=== PATIENT | male | born 1945 | race Caucasian/White ===

== ENCOUNTER → 2019-02-02 | Outpatient (CLI) | payer SELFPAY ==
[2019-02-02 14:05] VITALS: BMI 30.7
--- NOTE | 2019-02-02 15:45 | RAD_ITS ---
STUDY: X-RAY - LUMBAR SPINE REASON FOR EXAM: Male, 73 years old. Spinal stenosis. Back pain. Right-sided radiculopathy. TECHNIQUE: 3 view(s) of the lumbar spine were obtained. COMPARISON: None FINDINGS: There is an exaggerated lumbar lordosis. There is a mild scoliosis of the lumbar spine. There is anterolisthesis of L5 on S1 of 1 cm. The alignment is otherwise preserved. There is diffuse demineralization with multi-level endplate spondylosis. There is multi-level degenerative disc disease with multi-level disc space narrowing. There is no evidence of acute fracture or loss of vertebral axial height. Diffuse degenerative facet disease. There are probable pars defects at L5-S1. The soft tissue structures are unremarkable. There is right artificial hip. RAD/Lumbar Spine 2 or 3 Views IMPRESSION: 1. Exaggerated lumbar lordosis with mild scoliosis and degenerative changes. 2. Marked anterolisthesis of L5 on S1 with probable pars defects. Electronically Signed: Romero Stewart DO at 23:14 EDT Tel [phone], Service support ,
== END | disposition home or self-care (01) ==
PROVIDERS: Family Provider Family Medicine; PCP Family Medicine; Referring Provider Family Medicine; Visit Provider Family Medicine
DX: M48.00 Spinal stenosis, site unspecified (principal)
CPT/HCPCS: 72100

== ENCOUNTER → 2020-04-18 15:17 | Outpatient (CLI) | payer SELFPAY ==
[2020-04-18 14:38] VITALS: BMI 30.7
[2020-04-18 17:34] LABS: PSA,Total- Diagnostic 0.99 ng/mL (0.0-4.0)
== END ==
PROVIDERS: PCP Family Medicine; Referring Provider Family Medicine; Visit Provider Family Medicine
DX: N40.0 Benign prostatic hyperplasia without lower urinary tract symptoms (principal)
CPT/HCPCS: 36415; 84153

== ENCOUNTER 2020-10-13 07:41 | Day surgery (SDC) | payer SELFPAY, OTHER ==
[2020-09-26 14:20] VITALS: BMI 30.4
[2020-10-13] VITALS (7 sets, daily range): BP systolic 103–167; BP diastolic 69–99; PULSE 72–96; RESP 16; TEMP 36–36.9; O2SAT 96–98; BMI 29.2
--- NOTE | 2020-10-13 | COLBX_PTH ---
PATIENT: PAXTON WILSON LOC: EN U#:[id number] AGE/SX: 75/M ROOM: RE10/13/[address]: Dr. Prosper Vaughan MD : 1945 BED: DIS: 10/13/2020 SPEC #: [id number] RECD: 10/13/20 12:37 STATUS: QING OLIVAS #: [id number] VIOLA: 10/13/20 00:[address]: Prosper Vaughan DEPT: SURGICAL PATHOLOGY RECD BY: Zeferino Melgar ENTERED: 10/13/20 12:38 SP TYPE: COLON BX OTHR DR: Dr. Jay Mart, DO Tissues: A - Ileum, NOS B - Transverse colon C - Sigmoid colon biopsy D - Sigmoid colon biopsy E - Rectum, NOS Procedures: Trichrome (control) Special Stain Group II Surgery Specimen Level IV HEADER OPERATION: Colonoscopy (MAC) PRE-OP DIAGNOSIS: Rectal bleeding TISSUE SUBMITTED: A - Ileocecal valve biopsy, B - Mid transverse biopsy, C - Proximal sigmoid biopsy cold snare, D - Mid sigmoid biopsy, E - Rectal mass biopsy and hot snare MICROSCOPIC DIAGNOSIS A. Ileocecal valve, biopsy: A fragment of colonic mucosa with focal hyperplastic changes. B. Mid transverse colon polyp, biopsy: Tubular adenoma. C. Proximal sigmoid colon, biopsy: Tubular adenoma. D. Mid sigmoid biopsy: A fragment of colonic mucosa with pigment laden macrophages, consistent with melanosis coli. Focal changes suggestive of collagenous colitis. See comment. E. 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 See comment. SJ:rg 10/16/2020 COMMENT D. Trichrome stain with matched control was used in the evaluation of the specimen and shows focal minimal thickening of subepithelial collagen band. E. The specimen predominantly consists of fragments of tubulovillous adenoma. MICROSCOPIC DESCRIPTION Slides are reviewed. GROSS DESCRIPTION A - Received in fixative is one container labeled with the patient's name and designated ileocecal valve biopsy. The specimen consists of one irregular fragment of light romo soft tissue that measures 0.2 x 0.2 x 0.1 cm. The specimen is totally submitted in one cassette. B - Received in fixative is one container labeled with the patient's name and designated mid transverse biopsy. The specimen consists of one irregular fragment of light romo soft tissue that measures 0.3 x 0.2 x 0.1 cm. The specimen is totally submitted in one cassette. C - Received in fixative is one container labeled with the patient's name and designated proximal sigmoid biopsy cold snare. The specimen consists of one irregular fragment of light romo soft tissue that measures 0.5 x 0.4 x 0.1 cm. The specimen is totally submitted in one cassette. D - Received in fixative is one container labeled with the patient's name and designated mid sigmoid biopsy. The specimen consists of one irregular fragment of light romo soft tissue that measures 0.2 x 0.3 x 0.1 cm. The specimen is totally submitted in one cassette. E - Received in fixative is one container labeled with the patient's name and designated rectal mass biopsy and hot snare. The specimen consists of a romo-pink polyp measuring 1.5 x 1 x 1 cm. Apparent base is inked. The specimen is serially sectioned. Also present in the container are multiple fragments of romo soft tissue measuring in aggregate 1 x 0.4 x 0.1 cm. The entire specimen is submitted in two cassettes as follows: 1 - serially sectioned polyp, 2 - rest of the specimen, smaller fragments. / SJ:rg 10/13/20 TC:0 CPT: 32135 x5, 87336
--- NOTE | 2020-10-13 08:16 | HP.PCM_ITS ---
Problem List (1) Rectal bleeding Status: Acute (2) Hemorrhoids, internal, with bleeding Status: Chronic History and Physical Date of Admission: 10/13/20 Intake Visit Reasons: Hemorrhoids Chief Complaint: hemorrhoids [employer] Required: No Accompanied by: Is patient in pain?: No Allergies Penicillins Allergy (Severe, Verified 09/26/20 14:22) Hives Medications [id number] PO 02/02/19 [History Confirmed 09/26/20] triamcinolone acetonide 0.1 % topical cream 1 applic TOPICAL BID #30 g 10/11/19 [Rx Confirmed 09/26/20] tamsulosin 0.4 mg capsule 0.4 mg PO DAILY #90 cap 06/28/20 [Rx Confirmed 09/26/20] ibuprofen 200 mg tablet 200 mg PO Q6H PRN 09/26/20 [History Confirmed 09/26/20] [facility] Medical History (Updated 09/26/20 @ 14:[address] Prosper Vaughan MD) Rectal bleeding (Acute) Hemorrhoids, internal, with bleeding (Chronic) Open comedone (Acute) Leaky heart valve (Chronic) Rheumatic fever (Acute) BPH (benign prostatic hyperplasia) (Chronic) Arthritis (Acute) Heart murmur (Acute) History of back problems (Acute) Surgical History (Updated 09/26/20 @ 14:19 by Machelle Cole) History of carpal tunnel release of both wrists (Acute) History of sebaceous cyst (Acute) History of total right hip replacement (Acute) history ORIF jaw (Acute) Family History Brother Heart disease Stomach cancer Brother Heart disease Sister Cancer Sister Cancer Social History (Updated 09/26/20 @ 14:[address] Prosper Vaughan MD) Smoking Status: Former smoker how long ago did patient quit smokin-30 years ago alcohol intake: current alcohol intake frequency: holidays/special occasions only Alcohol type: beer, hard liquor, other substance use type: does not use what type of physical activity do you participate in: none HPI HPI HPI: PAXTON WILSON, is a 75 M who presents to the office today for surgical consultation regarding rectal bleeding. The patient is referred by Dr. aZira Oliveira and a written copy my surgical consult recommendations will be returned to him. Patient has had at least 2 years of rectal bleeding. Occasionally has discomfort but some but most of the time not. He occasion will have some sharp pain. He notes more recently that he has to reach back there and reduce tissue. He has never had a colonoscopy or inspection of his colon. He is not on any anticoagulants. He denies any family history of colon polyps or colon cancer. He does have benign prostatic hypertrophy and he is on tamsulosin for that. He is [employer]. He is still working. Sometimes he has to lift up to 80 pounds. He occasion will try some topical ointments. Past surgical history includes a right hip replacement. He denies myocardial infarction or CVA or diabetes or DVT. He denies history of anemia HPI HPI HPI: PAXTON WILSON, is a 75 M who presents to the office today for ROS General General: No weight change, appetite, fatigue, colon cancer, breast cancer or weakness HEENT HEENT: No difficulty swallowing, eye injury, eye surgery, swollen glands or hoarseness Endo Endocrine: No thyroid disease, diabetes mellitus, thyroid cancer, Hair loss, heat intolerance or cold intolerance Skin Skin: No rash or changing moles Breast Breast: No left breast lump, right breast lump, nipple discharge, breast pain, abnormal mammogram, abnormal US or breast enlargement Musc Musculoskeletal: Yes back problems and arthritis; no rheumatoid arthritis, gout or joint pain Cardio Cardiovascular: Yes murmur; no pacemaker, heart disease, atrial fibrillation, high blood pressure, heart attack, heart stent, palpitations, shortness of breat with exertion or chest pain Psych Psychiatric: No depression, anxiety or hearing voices Resp Respiratory: No shortness of breath, No sleep apnea, No cough, No COPD, No asthma, No emphysema, No wheezing Gastro Gastrointestinal: No abdominal pain, No nausea or vomiting, No diarrhea, No constipation, No blood in stool, No acid reflux, Yes hemorrhoids, No ulcers, No gallbladder problem, No black,tarry stools Markus Hematologic: No blood thinners, No blood disorders, Yes bleeding, No anemia, No blood clots Neuro Neurologic: No system reviewed and no additional complaints, except as docu, No as per HPI, No abnormal walking, No abnormal hearing, No abnormal movements, No abnormal speech, No behavioral changes, No burning sensations, No confusion, No seizure-like activity, No unsteadiness, No dizziness, No localized weakness, No frequent falls, No headache(s), No lack of coordination, No loss of vision, No memory loss, No numbness, No other visual disturbances, No radiating pain, No restless legs, No sensory deficit, No fainting, No tingling, No tremor(s), No weakness, No other Exam Const General: cooperative, comfortable, no acute distress, well developed Nutritional Appearance: obese Orientation: alert, awake [facility] Head: normal to inspection Chest Chest palpation & inspection: normal inspection of the chest Breast Palpation: No nipple discharge Resp Effort & Inspection: normal respiratory effort Auscultation: clear to auscultation bilaterally Cardio Rate: regular rate Rhythm: regular rhythm Heart Sounds: murmur GI Palpation: soft, no hepatosplenomegaly Auscultation: normal bowel sounds Musc Cervical Spine: normal cervical lordosis Skin General: no rashes or lesions noted Neuro Cognition: normal cognition Extrem General: no calf tenderness Psych Affect: normal affect Assessment & Plan Problems 1. Rectal bleeding K62.5 Plan 75-year-old Buddhist gentleman with rectal bleeding prolapsing tissue. He has never had a colonoscopy. Not sure whether this is prolapsing internal hemorrhoids or rectal prolapse or other etiology to the rectal bleeding. I do propose for him a colonoscopy with possible biopsy or polypectomy as indicated. I am quite uncomfortable with simply treating hemorrhoids and the patient was never had an inspection of his colon. He is aware of this. He has had an opportunity to ask and have questions answered. He has been provided descriptive information regarding the colonoscopy. He has been provided information on the bowel prep. I am unable to determine what type of operative procedure would be best for him namely no hemorrhoidectomy or surgical hemorrhoidectomy or PPH hemorrhoidopexy until I am able to do a better inspection. He would like to see [facility] cost estimates. He will then proceed at his discretion. I appreciate the opportunity of assisting with his surgical care Copy: Dr. Zaira Sykes and Dr. Layo Vaughan M.D., F.A.C.S. I have re-examined the patient. There are no clinical changes since date of exam. Procedure Criteria Procedure Type: Elective COVID Risk Discussion: The surgeon/proceduralist and patient have discussed in detail the risk of exposure to and/or potential harm posed by the COVID-19 virus with having a surgery/procedure at this time versus the risk of delaying the surgery/procedure. It is not possible to know either the risk of delaying the surgery or procedure or chance of getting an infection with perfect accuracy, but a joint decision was made between the patient and the surgeon/proceduralist to proceed at this time with the scheduled surgery/procedure as indicated on the consent form.
[2020-10-13] MEDS: Lactated Ringers 1,000 ML 100 ML IV (08:17)
--- NOTE | 2020-10-13 09:23 | OP.COLON_ITS ---
Patient Name: Coleman Anderson Procedure Date: 10/13/2020 8:16 AM Date of : 1945 Age: 75 Procedure: Colonoscopy Indications: Rectal bleeding Providers: Prosper Vaughan MD Referring MD: Jay Mart Medicines: See the Anesthesia note for documentation of the administered medications Patient Profile: Last Colonoscopy: none. The patient's first colonoscopy is today. Complications: No immediate complications. Procedure: Pre-Anesthesia Assessment: - Prior to the procedure, a History and Physical was performed, and patient medications and allergies were reviewed. The patient's tolerance of previous anesthesia was also reviewed. The risks and benefits of the procedure and the sedation options and risks were discussed with the patient. All questions were answered, and informed consent was obtained. Prior Anticoagulants: The patient has taken no previous anticoagulant or antiplatelet agents. ASA Grade Assessment: II - A patient with mild systemic disease. After reviewing the risks and benefits, the patient was deemed in satisfactory condition to undergo the procedure. After I obtained informed consent, the scope was passed under direct vision. Throughout the procedure, the patient's blood pressure, pulse, and oxygen saturations were monitored continuously. The colonoscope was introduced through the anus and advanced to the cecum, identified by appendiceal orifice and ileocecal valve. The colonoscopy was performed with moderate difficulty due to a tortuous colon. Successful completion of the procedure was aided by changing the patient to a supine position and applying abdominal pressure. The patient tolerated the procedure well. The quality of the bowel preparation was fair. The ileocecal valve and the appendiceal orifice were photographed. Scope In: 8:33:41 AM Scope Withdrawal Time 0 hours 19 minutes 5 seconds Scope Out: 9:07:25 AM Total Procedure Duration Time 0 hours 33 minutes 44 seconds Findings: The digital rectal exam revealed a flocculent and mobile rectal mass palpated 1.0 cm from the anal verge. The mass was non-circumferential and located predominantly at the posterior bowel wall. A frond-like/villous non-obstructing large mass was found in the rectum. The mass was non-circumferential. No bleeding was present. Biopsies were taken with a cold forceps for histology. A polyp was found in the rectum. The polyp was removed with a hot snare. Polyp resection was incomplete. The resected tissue was retrieved. A 4 mm polyp was found in the ileocecal valve. The polyp was sessile. The polyp was removed with a cold biopsy forceps. Resection and retrieval were complete. A 5 mm polyp was found in the mid transverse colon. The polyp was sessile. The polyp was removed with a cold biopsy forceps. Resection and retrieval were complete. A 8 mm polyp was found in the proximal sigmoid colon. The polyp was sessile. The polyp was removed with a cold snare. Resection and retrieval were complete. A 4 mm polyp was found in the mid sigmoid colon. The polyp was sessile. The polyp was removed with a cold biopsy forceps. Resection and retrieval were complete. The left colon was significantly tortuous. Advancing the scope required changing the patient to a supine position and using manual pressure. Impression: - Preparation of the colon was fair. - Rectal mass 0.5cm cm from the anal verge. 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 Biopsied with cold forcep and hot snare partial resection. - One polyp in the rectum, removed with a hot snare. Incomplete resection. Resected tissue retrieved. - One 4 mm polyp at the ileocecal valve, removed with a cold biopsy forceps. Resected and retrieved. - One 5 mm polyp in the mid transverse colon, removed with a cold biopsy forceps. Resected and retrieved. - One 8 mm polyp in the proximal sigmoid colon, removed with a cold snare. Resected and retrieved. - One 4 mm polyp in the mid sigmoid colon, removed with a cold biopsy forceps. Resected and retrieved. - Tortuous colon. Recommendation: - Discharge patient to home. - Resume previous diet. - Continue present medications. - Repeat colonoscopy in 1 year for surveillance. - Return to my office in 5 days. Make appointment for please Procedure Code(s): --- Professional --- 16474, Colonoscopy, flexible; with removal of tumor(s), polyp(s), or other lesion(s) by snare technique 60716, 59, Colonoscopy, flexible; with biopsy, single or multiple Diagnosis Code(s): --- Professional --- K62.89, Other specified diseases of anus and rectum D49.0, Neoplasm of unspecified behavior of digestive system K62.1, Rectal polyp D12.0, Benign neoplasm of cecum D12.3, Benign neoplasm of transverse colon (hepatic flexure or splenic flexure) D12.5, Benign neoplasm of sigmoid colon K62.5, Hemorrhage of anus and rectum Q43.8, Other specified congenital malformations of intestine CPT copyright 2017 [employer]. All rights reserved. The codes documented in this report are preliminary and upon auditing coder review may be revised to meet current compliance requirements. Prosper Vaughan MD 10/13/2020 9:22:26 AM This report has been signed electronically. Number of Addenda: 0 Note Initiated On: 10/13/2020 8:16 AM
--- NOTE | 2020-10-13 09:23 | OP.CCLET_ITS ---
10/13/2020 Jay Mart Re : Colonoscopy procedure for Coleman Anderson Dear Dr. Mart This procedure was performed on Tuesday, October 13, 2020. My impressions and recommendations are as follows: Impressions : - Preparation of the colon was fair. - Rectal mass 0.5cm cm from the anal verge. 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 Biopsied with cold forcep and hot snare partial resection. - One polyp in the rectum, removed with a hot snare. Incomplete resection. Resected tissue retrieved. - One 4 mm polyp at the ileocecal valve, removed with a cold biopsy forceps. Resected and retrieved. - One 5 mm polyp in the mid transverse colon, removed with a cold biopsy forceps. Resected and retrieved. - One 8 mm polyp in the proximal sigmoid colon, removed with a cold snare. Resected and retrieved. - One 4 mm polyp in the mid sigmoid colon, removed with a cold biopsy forceps. Resected and retrieved. - Tortuous colon. Recommendations : - Discharge patient to home. - Resume previous diet. - Continue present medications. - Repeat colonoscopy in 1 year for surveillance. - Return to my office in 5 days. Make appointment for please My findings are described in the full procedure note, which is enclosed. If I can be of further assistance, please feel free to contact me at Doctor phone number(s): Work: . Sincerely, Prosper Vaughan MD 10/13/2020 9:22:26 AM This report has been signed electronically.
== END 2020-10-13 10:25 | disposition home or self-care (01) ==
LOC: EN 07:44 → AC 07:46
PROVIDERS: PCP Family Medicine; Referring Provider Family Medicine; Visit Provider Surgery
PROC: 0DJD8ZZ Inspection of Lower Intestinal Tract, Via Natural or Artificial Opening Endoscopic (ICD-10-PCS; CPT 45378; principal; 2020-10-13 09:25)
DX: K62.5 Hemorrhage of anus and rectum (principal); Z20.828 Contact with and (suspected) exposure to other viral communicable diseases; N40.0 Benign prostatic hyperplasia without lower urinary tract symptoms; M19.90 Unspecified osteoarthritis, unspecified site; D12.0 Benign neoplasm of cecum; D49.0 Neoplasm of unspecified behavior of digestive system; Q43.8 Other specified congenital malformations of intestine; D12.5 Benign neoplasm of sigmoid colon; D12.3 Benign neoplasm of transverse colon; D12.8 Benign neoplasm of rectum; Z79.899 Other long term (current) drug therapy; Z87.891 Personal history of nicotine dependence
CPT/HCPCS: 45380; 45385; 87426; 88305; 88313; C9803; J7120; J2405

== ENCOUNTER 2022-12-27 08:28 | Day surgery (SDC) | payer SELFPAY ==
--- NOTE | 2022-12-27 08:51 | PCM.HP.BLA ---
History and Physical Date of Admission: 12/27/22 Visit Reasons:?C-SCOPE/RECALL LETTER Chief Complaint: c-scope/recall letter Allergies Penicillins Allergy (Severe, Verified 12/12/21 14:46) Hives Medications [id number] 1 tablet PO DAILY 02/02/19 [History Confirmed 11/19/22] triamcinolone acetonide 0.1 % topical cream 1 applic topical BID #30 grams 10/11/19 [Rx Confirmed 11/19/22] ibuprofen 200 mg tablet 200 mg PO Q6H PRN Not Specified 09/26/20 [History Confirmed 11/19/22] tamsulosin 0.4 mg capsule (Flomax) 0.4 mg PO DAILY #90 caps 03/13/21 [Rx Confirmed 11/19/22] amlodipine 5 mg tablet 5 mg PO QHS #90 tabs 12/12/21 [Rx Confirmed 11/19/22] PFSH Medical History?(Updated 11/19/22 @ 12:[address] Prosper Vaughan MD) Arthritis BPH (benign prostatic hyperplasia) Colon cancer Heart murmur Hemorrhoids, internal, with bleeding History of back problems Leaky heart valve Open comedone Rectal bleeding Rheumatic fever Surgical History?(Updated 03/09/22 @ 17:33 by Domi Smith) H/O colectomy History of carpal tunnel release of both wrists History of sebaceous cyst History of total right hip replacement history ORIF jaw Family History? Brother Heart disease Stomach cancerBrother Heart diseaseSister?? CancerSister?? Cancer Social History? Smoking Status:? Former smoker how long ago did patient quit smoking:? 25-30 years ago alcohol intake:? current alcohol intake frequency: holidays/special occasions only Alcohol type: beer, hard liquor and other substance use type:? does not use what type of physical activity do you participate in:? none HPI HPI HPI: I had assisted this patient on October 13, 2020 with a colonoscopy.? I detected a rectal mass which was malignant.? There was additional polyp in the rectum and 1 at the ileocecal valve and 1 in the mid transverse colon 1 in the proximal sigmoid colon and 1 in the mid sigmoid colon with a tortuous colon noted.? The patient had a robotic APR with permanent colostomy by on 02/26/21.? 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 He is currently treated by Dr. Dony Saenz for hematology.? The patient is due for colonoscopy. Primary concern is an ever enlarging bubble at the stoma site.? He has had a hand fashion a elastic band that has a metal piece with a hole cut out to try to help support this stomal hernia. 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 ROS General General: No weight change, appetite, fatigue, colon cancer, breast cancer or weakness HEENT HEENT: No difficulty swallowing, eye injury, eye surgery, swollen glands or hoarseness Endo Endocrine: No thyroid disease, diabetes mellitus, thyroid cancer, Hair loss, heat intolerance or cold intolerance Skin Skin: No rash or changing moles Breast Breast: No left breast lump, right breast lump, nipple discharge, breast pain, abnormal mammogram, abnormal US or breast enlargement Musc Musculoskeletal: No back problems, arthritis, rheumatoid arthritis, gout or joint pain Cardio Cardiovascular: No murmur, pacemaker, heart disease, atrial fibrillation, high blood pressure, heart attack, heart stent, palpitations, shortness of breat with exertion or chest pain Psych Psychiatric: No depression, anxiety or hearing voices Resp Respiratory: No shortness of breath, No sleep apnea, No cough, No COPD, No asthma, No emphysema and No wheezing Gastro Gastrointestinal: No abdominal pain, No nausea or vomiting, No diarrhea, No constipation, No blood in stool, No acid reflux, No hemorrhoids, No ulcers, No gallbladder problem and No black,tarry stools Markus Hematologic: No blood thinners, No blood disorders, No bleeding, No anemia and No blood clots Neuro Neurologic: No system reviewed and no additional complaints, except as documented, No as per HPI, No abnormal gait, No abnormal hearing, No abnormal movements, No abnormal speech, No behavioral changes, No burning sensations, No confusion, No convulsions, No disequilibrium, No dizziness, No localized weakness, No frequent falls, No headache(s), No lack of coordination, No loss of vision, No memory loss, No numbness, No other visual disturbances, No radicular pain, No restless legs, No sensory deficit, No syncope, No tingling, No tremor(s), No weakness and No other Exam Const General: cooperative, comfortable and no acute distress Nutritional Appearance: overweight HENMT Head: normal to inspection Eyes General: appearance normal, both eyes and all related structures Chest Chest palpation & inspection: normal inspection of the chest Resp Effort & Inspection: normal respiratory effort Auscultation: clear to auscultation bilaterally Cardio Rate: regular rate Rhythm: regular rhythm GI Palpation: soft and no hepatosplenomegaly Other: Left lower quadrant stoma with a very large nonreducible parastomal hernia Musc Cervical Spine: normal cervical lordosis Skin General: no rashes or lesions noted Neuro General: patient alert, patient awake and patient oriented x3 Extrem General: no calf tenderness Psych Appearance: grossly normal Assessment and Plan Assessment and Plan (1) Rectal cancer: ?Status:?Acute ?Plan: I recommended the patient a colonoscopy through his left lower quadrant stoma.? This may indeed be very challenging due to the size of his parastomal hernia.? He is aware of the technique, benefit, risk, alternatives. The patient's most recent CT scan imaging was performed [facility] I will request that we obtain images so that I can review that study particularly of the stomal site.? I have explained to the patient and his the difficulties in repairing parastomal hernias and the difficulty in getting durability of any type of repair.? At this point I am not particularly in favor of proceeding with attempted repair as he is not having obstructive symptoms.? He is Concerned however because this hernia is ever enlarging.? I will review his CT and try to provide further direction. Copy: Dr. Dony Saenz and Dr. Layo Vaughan M.D., F.A.C.S. (2) Personal history of colonic polyps: ?Status:?Acute (3) Parastomal hernia: ?Status:?Acute I have examined the patient and the H&P has been reviewed. There are no clinical changes since date of exam. Prosper Vaughan M.D., F.A.C.S.
[2022-12-27 09:34] VITALS: BP 172/84; PULSE 80; RESP 16; TEMP 37; O2SAT 98; BMI 29.0
[2022-12-27] MEDS: Lactated Ringers 1,000 ML 15 ML IV (09:42)
--- NOTE | 2022-12-27 10:15 | COLBX_PTH ---
PATIENT: PAXTON WILSON LOC: EN U#:[id number] AGE/SX: 77/M ROOM: RE12/27/[address]: Dr. Prosper Vaughan MD : 1945 BED: DIS: 12/27/2022 SPEC #: [id number] RECD: 12/27/22 12:59 STATUS: QING REFernando #: [id number] VIOLA: 12/27/22 10:[address]: Prosper Vaughan DEPT: SURGICAL PATHOLOGY RECD BY: Kathya Galvan ENTERED: 12/27/22 13:20 SP TYPE: COLON BX OTHR DR: Dr. Jay Mart, DO Tissues: Transverse colon Procedures: Surgery Specimen Level IV HEADER OPERATION: Colonoscopy (MAC) through stoma, polypectomy PRE-OP DIAGNOSIS: Rectal cancer TISSUE SUBMITTED: Polyp distal transverse MICROSCOPIC DIAGNOSIS Distal transverse colon polyp, biopsy: Tubular adenoma. See comment. AM:guillermo 12/30/2022 COMMENT Abundant fecal debris is present. MICROSCOPIC DESCRIPTION Slides are reviewed. GROSS DESCRIPTION Received in fixative is one container labeled with the patient's name and designated polyp distal transverse. The specimen consists of multiple irregular fragments of light romo soft tissue that in aggregate measure 2.5 x 0.7 x 0.1 cm. The specimen is totally submitted in one cassette. / SJ:guillermo 12/27/2022 TC:5 CPT: 88020
[2022-12-27 10:55] VITALS: BP 172/84; BP 97/60; PULSE 82; PULSE 84; RESP 14; RESP 18; TEMP 36.7; O2SAT 93; O2SAT 94
--- NOTE | 2022-12-27 10:55 | OP.COLON_ITS ---
Patient Name: Coleman Anderson Procedure Date: 12/27/2022 10:23 AM Date of : 1945 Age: 77 Procedure: Colonoscopy Indications: High risk colon cancer surveillance: Personal history of colon cancer Providers: Prosper Vaughan MD Referring MD: Jay Mart Medicines: See the Anesthesia note for documentation of the administered medications Patient Profile: Last Colonoscopy: within the past 3 years. Complications: No immediate complications. Procedure: Pre-Anesthesia Assessment: - Prior to the procedure, a History and Physical was performed, and patient medications and allergies were reviewed. The patient's tolerance of previous anesthesia was also reviewed. The risks and benefits of the procedure and the sedation options and risks were discussed with the patient. All questions were answered, and informed consent was obtained. Prior Anticoagulants: The patient has taken no previous anticoagulant or antiplatelet agents. ASA Grade Assessment: II - A patient with mild systemic disease. After reviewing the risks and benefits, the patient was deemed in satisfactory condition to undergo the procedure. After I obtained informed consent, the scope was passed under direct vision. Throughout the procedure, the patient's blood pressure, pulse, and oxygen saturations were monitored continuously. The adult colonoscope was introduced through the anus and advanced to the cecum, identified by appendiceal orifice and ileocecal valve. The colonoscopy was performed without difficulty. The patient tolerated the procedure well. The quality of the bowel preparation was adequate to identify polyps. The ileocecal valve and the appendiceal orifice were photographed. Scope In: 10:31:28 AM Scope Withdrawal Time 0 hours 11 minutes 26 seconds Scope Out: 10:47:34 AM Total Procedure Duration Time 0 hours 16 minutes 6 seconds Findings: A 5 mm polyp was found in the distal transverse colon. The polyp was sessile. The polyp was removed with a hot snare. Resection and retrieval were complete. Multiple diverticula were found in the descending colon. Impression: - One 5 mm polyp in the distal transverse colon, removed with a hot snare. Resected and retrieved. - Diverticulosis in the descending colon. Recommendation: - Discharge patient to home. - Resume previous diet. - Continue present medications. - Repeat colonoscopy in 3 years for surveillance. - Return to my office in 3 weeks. History of abdominal perineal resection. Endoscopy performed via end sigmoid colostomy. Prolapse of the colon noted and parastomal hernia involving small bowel. Office appointment recommended to discuss tentative repair of parastomal hernia and colonic intussusception at the left lower quadrant stomal site Procedure Code(s): --- Professional --- 56512, Colonoscopy, flexible; with removal of tumor(s), polyp(s), or other lesion(s) by snare technique Diagnosis Code(s): --- Professional --- Z85.038, Personal history of other malignant neoplasm of large intestine D12.3, Benign neoplasm of transverse colon (hepatic flexure or splenic flexure) K57.30, Diverticulosis of large intestine without perforation or abscess without bleeding CPT copyright 2017 [employer]. All rights reserved. The codes documented in this report are preliminary and upon folder seamer automatic review may be revised to meet current compliance requirements. Prosper Vaughan MD 12/27/2022 10:54:55 AM This report has been signed electronically. Number of Addenda: 0 Note Initiated On: 12/27/2022 10:23 AM
--- NOTE | 2022-12-27 10:55 | OP.CCLET_ITS ---
12/27/2022 Dony Saenz [address] [place] [address] Re : Colonoscopy procedure for Coleman Anderson Dear Dr. Saenz This procedure was performed on Tuesday, December 27, 2022. My impressions and recommendations are as follows: Impressions : - One 5 mm polyp in the distal transverse colon, removed with a hot snare. Resected and retrieved. - Diverticulosis in the descending colon. Recommendations : - Discharge patient to home. - Resume previous diet. - Continue present medications. - Repeat colonoscopy in 3 years for surveillance. - Return to my office in 3 weeks. History of abdominal perineal resection. Endoscopy performed via end sigmoid colostomy. Prolapse of the colon noted and parastomal hernia involving small bowel. Office appointment recommended to discuss tentative repair of parastomal hernia and colonic intussusception at the left lower quadrant stomal site My findings are described in the full procedure note, which is enclosed. If I can be of further assistance, please feel free to contact me at Doctor phone number(s): Work: . Sincerely, Prosper Vaughan MD 12/27/2022 10:54:55 AM This report has been signed electronically.
[2022-12-27 11:00] VITALS: BP 172/84; BP 93/72; PULSE 83; RESP 18; O2SAT 93
[2022-12-27 11:08] VITALS: BP 118/85; BP 172/84; PULSE 88; RESP 18; TEMP 36.3; O2SAT 96
[2022-12-27 11:26] VITALS: BP 172/84
== END 2022-12-27 11:43 | disposition home or self-care (01) ==
LOC: EN 08:34 → AC 08:35
PROVIDERS: PCP Family Medicine; Referring Provider Family Medicine; Visit Provider Surgery
PROC: 0DJD8ZZ Inspection of Lower Intestinal Tract, Via Natural or Artificial Opening Endoscopic (ICD-10-PCS; CPT 45378; principal; 2022-12-27 10:10)
DX: Z12.11 Encounter for screening for malignant neoplasm of colon (principal); C20 Malignant neoplasm of rectum; D12.3 Benign neoplasm of transverse colon; K57.30 Diverticulosis of large intestine without perforation or abscess without bleeding; N40.0 Benign prostatic hyperplasia without lower urinary tract symptoms; Z79.899 Other long term (current) drug therapy; Z87.891 Personal history of nicotine dependence
CPT/HCPCS: 45385; 88305; J7120; J2405